=== PATIENT | male | born 1965 | race Caucasian/White ===

== ENCOUNTER → 2016-09-02 | Outpatient (CLI) | payer OTHER ==
[~2016-09-02] MED LIST: ALBUTEROL17 GM INH; IBUPROFEN600 MG PO; IBUPROFEN800 MG PO
--- NOTE | ~2016-09-02 | MR113 ---
[facility] A Service of [facility] & [facility] RADIOLOGY TEXT RESULTS PATIENT: LUKE BILL LOCATION: [facility] : 69 UNIT #: [id number] AGE: [address]: Carina Caballero MD SEX: M ORDER DR: [id number] [facility] [address] [place], [place] [address] [id number] O MR#: [id number] Acc #: [id number] NAME: LUKE BILL. : 1965 SEX: M STUDY DATE/TIME: 09/02/2016 17:20 UNIT: [facility] ROOM: STUDY DESCRIPTION: MR Lumbar Wo Contrast Attending Physician: Carina Caballero M.D. Referring Physician: Carina Caballero M.D. Ordering Physician: Carina Caballero M.D. Primary Care Physician: Carina Caballero M.D. MRI CENTER REPORT This report is preliminary unless electronic signature is present. EXAM Lumbar spine MRI HISTORY Back pain gradually worsening over the past 5 years with numbness and tingling in the legs and feet. TECHNIQUE Multiplanar imaging of the lumbar spine was performed with short and long TR. FINDINGS Alignment is satisfactory. There is mild degenerative disc disease at T11-12 and T12-L1. The L1-2 and L2-3 levels are normal. At L3-4 there is disc space narrowing with mild broad-based posterior disc bulging and mild central stenosis. At L4-5 there is moderate disc space narrowing with broad-based posterior disc bulging mild facet hypertrophy and mild central stenosis. There is mild foraminal narrowing on the left and moderately severe foraminal narrowing on the right with near complete loss of fat around the right exiting nerve root. At L5-S1 the disc and facets are normal. The conus is normal. There is no evidence of marrow edema and there is no evidence of paraspinous mass. IMPRESSION Degenerative changes lower thoracic spine as well as at L3-4 and L4-5 most prominent at L4-5 where there is mild central stenosis mild left foraminal narrowing and moderately severe right foraminal narrowing from disc and facet disease. [facility]. [facility] A Service of [facility] & [facility] RADIOLOGY TEXT RESULTS PATIENT: LUKE BILL LOCATION: [facility] : [birth year] UNIT #: [id number] AGE: [address]: Carina Caballero MD SEX: M ORDER DR: Dictated by... Dylan Page M.D. THIS IS AN ELECTRONICALLY VERIFIED REPORT Dylan Page M.D. at 09/03/2016 4:33 PM IDALIA/steven TD: 09/03/2016 13:50 JOB #: [id number] MRI CENTER REPORT Page 1 of 1 COPY
== END | disposition home or self-care (01) ==
LOC: CMRI 16:00
DX: G60.9 Hereditary and idiopathic neuropathy, unspecified (principal); M47.814 Spondylosis without myelopathy or radiculopathy, thoracic region; M48.04 Spinal stenosis, thoracic region
CPT/HCPCS: 72148

== ENCOUNTER → 2016-09-04 | Day surgery (SDC) | payer OTHER ==
--- NOTE | ~2016-09-04 | OR ---
Unit #: [id number] #: [id number] Patient: LUKE BILL [id number] [address] [place], [place] [address] [id number] O MR#: [id number] NAME: LUKE BILL ROOM: Date of Procedure: 09/04/2016 Admission Date: 09/04/2016 Surgeon: Dylan Jose M.D. : 1965 Attending Physician: Dylan Jose M.D. Referring Physician: Dylan Jose M.D. Primary Care Physician: Carina Caballero M.D. OPERATIVE REPORT PREOPERATIVE DIAGNOSIS Large left perineal condyloma. POSTOPERATIVE DIAGNOSIS Large left perineal condyloma. PROCEDURE PERFORMED Excision of left perineal condyloma. ANESTHESIA General with local supplementation. 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 DESCRIPTION OF PROCEDURE The patient was given preoperative Kefzol and satisfactory general anesthesia. In the dorsal lithotomy position, routine prep and drape were performed with the scrotum taped anteriorly and after prepping the area with clippers. I had assessed for an oblique ellipse before the prep in best estimation for laxity of tissues and closure without tension. Incision was made with a 10-blade approximately 2-1/2 inches long to excise the lesion with a thin margin. The lesion and ellipse were then with cautery including a small amount of Colles fascia in the central portion. Hemostasis was obtained with cautery easily. The wound was irrigated. It was then closed in 3 layers. First the central portion Colles fascia was closed with several interrupted 3-0 Vicryl. The subdermal layer then was approximated with multiple 3-0 Vicryl to take the stress off the skin incision. The skin itself was closed with a running subcuticular 4-0 Monocryl. Note that prior to the incision the wound was infiltrated with 0.5% Marcaine with epinephrine and the remainder of the allotment was administered after the incision was closed. Dermabond was applied and allowed to dry. The patient was then awakened and transported to the recovery room in satisfactory condition. Specimen sent in formalin. Dictated by... Dylan Jose M.D. [facility] Unit #: [id number] #: [id number] Patient: LUKE BILL TD: 09/04/2016 09:13 JOB #: [id number] OPERATIVE REPORT Page 1 of 1 X Dylan Jose MD X PROCEDURE OPERATIVE NOTE
== END | disposition home or self-care (01) ==
LOC: CSUR 05:47
DX: A63.0 Anogenital (venereal) warts (principal); K21.9 Gastro-esophageal reflux disease without esophagitis; J43.9 Emphysema, unspecified; F17.210 Nicotine dependence, cigarettes, uncomplicated; Z79.899 Other long term (current) drug therapy; Z96.612 Presence of left artificial shoulder joint; Z98.890 Other specified postprocedural states
CPT/HCPCS: 88305; J0690; J2250; J2405; J3010

== ENCOUNTER 2016-10-18 02:32 | Emergency (ER) | payer OTHER ==
--- NOTE | ~2016-10-18 | CR229 ---
[facility] A Service of [facility] & [facility] RADIOLOGY TEXT RESULTS PATIENT: LUKE BILL LOCATION: [facility] : [birth year] UNIT #: [id number] AGE: [address]: Agustina Pollard APRN SEX: M ORDER DR: [id number] [facility] [address] [place], [place] [address] [id number] E MR#: [id number] Acc #: [id number] NAME: LUKE BILL : 1965 SEX: M STUDY DATE/TIME: 10/18/2016 2:54 UNIT: [facility] ROOM: STUDY DESCRIPTION: CR Shoulder Min 2 View Lt Attending Physician: Agustina Pollard A.P.R.N. Ordering Physician: Jody Hanley M.D. Primary Care Physician: aCrina Caballero M.D. MEDICAL IMAGING REPORT This report is preliminary unless electronic signature is present EXAM Left shoulder HISTORY Left shoulder pain status post trauma. Right clavicle fracture. FINDINGS 3 views of the left shoulder compared to 06/07/2016. There is an anterior shoulder dislocation. Patient has had prior surgical repair of the scapula and the left clavicle. IMPRESSION Anterior left shoulder dislocation. Post reduction radiographs recommended Dictated by... Kilo Hatch M.D. THIS IS AN ELECTRONICALLY VERIFIED REPORT Kilo Hatch M.D. at 10/19/2016 12:03 AM TRACY/steven TD: 10/18/2016 04:19 JOB #: [id number] MEDICAL IMAGING REPORT Page 1 of 1 COPY
--- NOTE | ~2016-10-18 | CR229 ---
[facility] A Service of [facility] & [facility] RADIOLOGY TEXT RESULTS PATIENT: LUKE BILL LOCATION: [facility] : [birth year] UNIT #: [id number] AGE: [address]: Agustina Pollard APRN SEX: M ORDER DR: [id number] [facility] [address] [place], [place] [address] [id number] E MR#: [id number] Acc #: [id number] NAME: LUKE BILL : 1965 SEX: M STUDY DATE/TIME: 10/18/2016 4:32 UNIT: [facility] ROOM: STUDY DESCRIPTION: CR Shoulder Min 2 View Lt Attending Physician: Agustina Pollard A.P.R.N. Ordering Physician: Agustina Pollard A.P.R.N. Primary Care Physician: Carina Caballero M.D. MEDICAL IMAGING REPORT This report is preliminary unless electronic signature is present EXAM Left shoulder HISTORY Left shoulder pain status post reduction. FINDINGS 2 views of the left shoulder at 04:32 compared to 02:54. The glenohumeral joint is now anatomically aligned. No fractures are identified. IMPRESSION Anatomic alignment of the glenohumeral joint status post reduction Dictated by... Kilo Hatch M.D. THIS IS AN ELECTRONICALLY VERIFIED REPORT Kilo Hatch M.D. at 10/19/2016 12:04 AM TRACY/steven TD: 10/18/2016 05:16 JOB #: [id number] MEDICAL IMAGING REPORT Page 1 of 1 COPY
== END 2016-10-18 06:00 | disposition home or self-care (01) ==
LOC: CED 02:32
DX: S43.015A Anterior dislocation of left humerus, initial encounter (principal); F17.210 Nicotine dependence, cigarettes, uncomplicated; X50.1XXA Overexertion from prolonged static or awkward postures, initial encounter; Y92.009 Unspecified place in unspecified non-institutional (private) residence as the place of occurrence of the external cause
CPT/HCPCS: 73030; 96374; 99155; 99156; 99284